=== PATIENT | male | born 1985 | race Caucasian/White ===

== ENCOUNTER 2025-11-21 11:26 | Outpatient (CLI) | payer OTHER | END 2025-11-21 11:27 | disposition home or self-care (01) | LOC: BURRAD 11:26 | PROVIDERS: ATTEND Family Medicine | DX: S90.122A Contusion of left lesser toe(s) without damage to nail, initial encounter (principal); M79.675 Pain in left toe(s); S92.522A Displaced fracture of middle phalanx of left lesser toe(s), initial encounter for closed fracture ==